=== PATIENT | female | born 1985 | race Caucasian/White ===

== ENCOUNTER 2016-11-13 18:31 | Emergency (ER) | payer MEDICAID ==
[~2016-11-13] VITALS: Ht 157.5 cm; Wt 85.7 kg
[2016-11-13 18:50] VITALS: BP 146/95
== END 2016-11-13 21:07 | disposition home or self-care (01) ==
LOC: ED 18:31
DX: M79.604 Pain in right leg (principal); R03.0 Elevated blood-pressure reading, without diagnosis of hypertension
CPT/HCPCS: J1885

== ENCOUNTER 2016-11-16 19:58 | Emergency (ER) | payer MEDICAID ==
[~2016-11-16] VITALS: Ht 157.5 cm; Wt 85.7 kg
[2016-11-16 21:35] VITALS: BP 128/84
== END 2016-11-16 21:35 | disposition home or self-care (01) ==
LOC: ED 19:58
DX: L50.0 Allergic urticaria (principal)
CPT/HCPCS: J1200; J2930; J3490; J7030